=== PATIENT | female | born 1970 | race Caucasian/White ===

== ENCOUNTER → 2021-08-30 15:06 | Outpatient (CLI) | payer OTHER, SELFPAY ==
[2021-08-30 15:45] LABS: COVID19 -Nasal RAPID Negative (Negative)
== END ==
PROVIDERS: Visit Provider Physician Assistant
DX: Z20.822 Contact with and (suspected) exposure to COVID-19 (principal)
CPT/HCPCS: 87635

== ENCOUNTER → 2022-02-17 16:27 | Outpatient (CLI) | payer OTHER, SELFPAY ==
[2022-02-17 17:25] LABS: Hematocrit 40.2 % (36-46); Mean Corpuscular HGB Conc 34.9 % (30-36); Mean Corpuscular Hemoglobin 32.1 PG (26-34); Platelet Count 223 X10^3/uL (150-400); Red Blood Cell Count 4.37 X10^6/uL (4.0-5.2); Red Cell Distribution Width 12.8 % (11.6-14.8); White Blood Cell Count 7.1 X10^3/uL (4.5-11.0)
[2022-02-17 17:43] LABS: Alanine Aminotransferase 22 IU/L (<35); Albumin 4.7 g/dL (3.5-5.0); Albumin Globulin Ratio 1.7 (1.0-2.8); Alkaline Phosphatase 56 U/L (38-126); Aspartate Aminotransferase 30 IU/L (14-36); BUN Creatinine Ratio 22.8 (6-22); Bilirubin Total 0.6 mg/dL (0.2-1.3); Blood Urea Nitrogen 18 mg/dL (7-17); Calcium 9.3 mg/dL (8.4-10.2); Carbon Dioxide 29 mmol/L (22-32); Chloride 104 mmol/L (98-107); Cholesterol 174 mg/dL (140-199); Estimated Glomerular Filt Rate > 60 mL/min (>60); Globulin 2.8 g/dL (1.7-4.1); Glucose 84 mg/dL (70-100); HDL Cholesterol 67 mg/dL (40-60); HEMOLYSIS < 15 (0-50); LDL Cholesterol Calculated 75 mg/dL (<100); Potassium 3.6 mmol/L (3.4-5.1); Sodium 138 mmol/L (137-145); Total Protein 7.5 g/dL (6.3-8.2); Triglycerides 160 mg/dL (35-150)
== END ==
PROVIDERS: PCP Internal Medicine; Referring Provider Internal Medicine; Visit Provider Internal Medicine
DX: Z00.00 Encounter for general adult medical examination without abnormal findings (principal); R63.5 Abnormal weight gain; Z85.820 Personal history of malignant melanoma of skin
CPT/HCPCS: 36415; 80053; 80061; 84443; 85027

== ENCOUNTER → 2023-03-27 08:54 | Outpatient (CLI) | payer OTHER, SELFPAY ==
[2023-03-27 10:23] LABS: Hematocrit 40.1 % (36-46); Hemoglobin 13.9 g/dL (12.0-16.0); Mean Corpuscular HGB Conc 34.5 % (30-36); Mean Corpuscular Hemoglobin 31.7 PG (26-34); Mean Corpuscular Volume 91.9 fL (80-100); Platelet Count 225 X10^3/uL (150-400); Red Blood Cell Count 4.36 X10^6/uL (4.0-5.2); White Blood Cell Count 5.3 X10^3/uL (4.5-11.0)
[2023-03-27 10:46] LABS: Alanine Aminotransferase 27 IU/L (<35); Albumin Globulin Ratio 1.5 (1.0-2.8); Alkaline Phosphatase 58 U/L (38-126); Aspartate Aminotransferase 29 IU/L (14-36); BUN Creatinine Ratio 19.2 (6-22); Bilirubin Total 0.8 mg/dL (0.2-1.3); Blood Urea Nitrogen 14 mg/dL (7-17); Carbon Dioxide 30 mmol/L (22-32); Chloride 101 mmol/L (98-107); Cholesterol 153 mg/dL (140-199); Estimated Glomerular Filt Rate > 60 mL/min (>60); Globulin 2.6 g/dL (1.7-4.1); Glucose 82 mg/dL (70-100); HDL Cholesterol 58 mg/dL (40-60); HEMOLYSIS < 15 (0-50); LDL Cholesterol Calculated 76 mg/dL (<100); Potassium 3.8 mmol/L (3.4-5.1); Sodium 138 mmol/L (137-145); Total Protein 6.6 g/dL (6.3-8.2); Triglycerides 94 mg/dL (35-150)
[2023-03-27 11:15] LABS: TSH w/ Reflex to FT4 1.03 uIU/mL (0.47-4.68)
== END ==
PROVIDERS: PCP Registered Nurse Diabetes Educator; Referring Provider Registered Nurse Diabetes Educator; Visit Provider Registered Nurse Diabetes Educator
DX: Z00.00 Encounter for general adult medical examination without abnormal findings (principal)
CPT/HCPCS: 36415; 80053; 80061; 84443; 85027

== ENCOUNTER 2023-03-28 11:08 | Emergency (ER) | payer OTHER, SELFPAY ==
[2023-03-28] VITALS (11 sets, daily range): BP systolic 108–145; BP diastolic 66–72; PULSE 39–48; RESP 16–21; TEMP 36.9; O2SAT 98–99; BMI 24.0
--- NOTE | 2023-03-28 11:25 | DI.RAD.S_ITS ---
PROCEDURE: XR CHEST 1V INDICATIONS: chest pain TECHNIQUE: One view of the chest was acquired. COMPARISON: None. FINDINGS: Surgical changes and devices: None. Lungs and pleura: Lungs are clear. No pleural effusions or pneumothorax. Mediastinum: Mediastinal contours appear normal. Heart size is normal. Bones and chest wall: No suspicious bony lesions. Overlying soft tissues appear unremarkable. IMPRESSION: No acute cardiopulmonary abnormalities or focal airspace disease. Dictated by: Hector Vides M.D. on 03/28/2023 at 10:50 Approved by: Hector Vides M.D. on 03/28/2023 at 10:51
[2023-03-28 11:46] LABS: INR 1.1 (0.9-1.3); Prothrombin Time 12.1 SECONDS (10.1-12.7)
[2023-03-28 11:49] LABS: PTT Partial Thromboplastin Tim 28 SECONDS (26-36)
[2023-03-28 11:50] LABS: Add Manual Diff / Slide Review NO; Basophils Absolute Auto 200 /uL (0-100); Basophils Percent Auto 2.3 % (0-2); Eosinophils Absolute Auto 100 /uL (0-450); Eosinophils Percent Auto 1.7 % (2-4); Hematocrit 40.2 % (36-46); Hemoglobin 13.8 g/dL (12.0-16.0); Lymphocytes Absolute Auto 2000 /uL (1100-4500); Lymphocytes Percent Auto 27.3 % (25-40); Mean Corpuscular HGB Conc 34.5 % (30-36); Mean Corpuscular Hemoglobin 31.6 PG (26-34); Mean Corpuscular Volume 91.7 fL (80-100); Monocytes Absolute Auto 600 /uL (0-900); Monocytes Percent Auto 7.5 % (3-14); Neutrophils Absolute Auto 4500 /uL (1500-7000); Neutrophils Percent Auto 61.2 % (50-75); Platelet Count 225 X10^3/uL (150-400); Red Blood Cell Count 4.38 X10^6/uL (4.0-5.2); Red Cell Distribution Width 12.7 % (11.6-14.8); White Blood Cell Count 7.4 X10^3/uL (4.5-11.0)
[2023-03-28 11:52] LABS: Alanine Aminotransferase 27 IU/L (<35); Albumin 4.2 g/dL (3.5-5.0); Albumin Globulin Ratio 1.5 (1.0-2.8); Alkaline Phosphatase 58 U/L (38-126); Aspartate Aminotransferase 30 IU/L (14-36); BUN Creatinine Ratio 22.7 (6-22); Bilirubin Total 0.7 mg/dL (0.2-1.3); Blood Urea Nitrogen 17 mg/dL (7-17); Calcium 9.2 mg/dL (8.4-10.2); Carbon Dioxide 28 mmol/L (22-32); Chloride 103 mmol/L (98-107); Creatine Kinase 89 U/L (30-135); Estimated Glomerular Filt Rate > 60 mL/min (>60); Globulin 2.8 g/dL (1.7-4.1); Glucose 96 mg/dL (70-100); HEMOLYSIS < 15 (0-50); Lipase 69 U/L (23-300); Magnesium 2.1 mg/dL (1.6-2.3); Potassium 3.7 mmol/L (3.4-5.1); Sodium 137 mmol/L (137-145)
--- NOTE | 2023-03-28 11:57 | ED_ITS ---
HPI - Chest Pain General Chief Complaint: Chest Pain Stated Complaint: SOB/Chest Tightness Time Seen by Provider: 03/28/23 11:56 Source: patient Mode of arrival: Ambulatory Limitations: no limitations History of Present Illness HPI narrative: Patient healthy 53-year-old female who presents today left-sided chest pain. She reports that while doing ago which she does 4 times a week she is lying on her stomach doing the box breathing exercise when she got some sharp stabbing pain in her left chest. It is not reproducible with palpation. She felt like her whole chest was tight and that she could not breathe. She is feeling better now. Denies any nausea or vomiting. She reports that she went to PCP this week to establish care her vitals in the clinic she had a blood pressure 102/62, heart rate of 43. She is a little dizzy and lightheaded but reports that she drinks tons of water. They did just travel 3 weeks ago to [place]. No prior history of blood clots. No family history of [place] though mother did have a TIA and at age of 73. She is very active runs and does yoga regularly. Related Data Previous Rx's Medication Instructions Recorded fluticasone propionate 50 1 spray intranasal BID PRN nasal 06/28/22 mcg/actuation nasal congestion #16 grams spray,suspension Allergies Allergy/AdvReac Type Severity Reaction Status Date / Time No Known Drug Allergies Allergy Verified 03/24/23 09:44 Review of Systems Review of Systems ROS Unobtainable: All systems reviewed & are unremarkable except as noted in HPI and below Patient History Medical History Encounter for general adult medical examination without abnormal findings History of abnormal mammogram History of melanoma (~02/2017) Skin cancer Surgical History Anesthesia History of hysterectomy (~02/2018) Family History Father Melanoma Mother Hypertension Mental health problem Stroke Social History Smoking Status: Never smoker Smoking Status: Never smoker alcohol intake frequency: holidays/special occasions only Substance Use Type: does not use Exam Initial Vital Signs Initial Vital Signs: Vital Signs Temperature 98.4 F 03/28/23 11:19 Pulse Rate 48 L 03/28/23 11:19 Respiratory Rate 18 03/28/23 11:19 Blood Pressure 145/72 H 03/28/23 11:19 Pulse Oximetry 98 03/28/23 11:19 Oxygen Delivery Method Room Air 03/28/23 11:19 GENERAL: Alert pleasant well-appearing 53-year-old female and in no acute distress. HEENT: Head atraumatic,EOMI, pupils reactive, face symmetric, moist mucous membranes CARDIOVASCULAR: Regular rate and rhythm without murmurs, rubs or gallops. Pain left side of chest not reproducible with palpation RESPIRATORY: Breath sounds equal bilaterally, no wheezes rales or rhonchi. ABDOMEN: Soft, nontender. Normoactive bowel sounds all 4 quadrants. No guarding or rebound. EXTREMITIES: Normal range of motion, no clubbing or edema. Neurovascularly intact NEUROLOGICAL: Alert and oriented x4. SKIN: Warm, dry, no laceration, no petechiae, no rashes or lesions. Course Orders Ordered: ED Orders 03/28/23 11:19 EKG-12 Lead Stat 03/28/23 11:25 XR chest 1V Stat Complete Blood Count AUTO DIFF Stat Comprehensive Metabolic Panel Stat D Dimer Stat Lipase Stat Magnesium Stat PTT Partial Thromboplastin Harvey Stat Prothrombin Time INR Stat Troponin & CK Cardiac Panel Stat Discontinued Medications Aspirin (Aspirin 81 Mg Chew Tab) 324 mg PO NOW ONE Stop: 03/28/23 11:26 Last Admin: 03/28/23 11:59 Dose: 324 mg Documented By: RB Vital Signs Vital signs: Vital Signs - 8 hr 03/28/23 11:19 03/28/23 11:52 03/28/23 11:53 Temperature 98.4 F Pulse Rate 48 L 42 L Respiratory Rate 18 19 Blood Pressure 145/72 H 125/68 Pulse Oximetry 98 98 Oxygen Delivery Method Room Air 03/28/23 11:53 03/28/23 12:00 03/28/23 12:00 Temperature Pulse Rate 44 L 46 L Respiratory Rate 21 21 Blood Pressure 115/66 Pulse Oximetry 98 98 Oxygen Delivery Method 03/28/23 12:15 03/28/23 12:15 03/28/23 12:30 Temperature Pulse Rate 40 L Respiratory Rate 17 Blood Pressure 118/72 116/71 Pulse Oximetry 98 Oxygen Delivery Method 03/28/23 12:30 03/28/23 12:45 03/28/23 12:45 Temperature Pulse Rate 40 L 39 L Respiratory Rate 18 19 Blood Pressure 116/69 Pulse Oximetry 98 99 Oxygen Delivery Method 03/28/23 13:00 03/28/23 13:00 03/28/23 13:15 Temperature Pulse Rate 39 L Respiratory Rate 21 Blood Pressure 110/67 108/68 Pulse Oximetry 99 Oxygen Delivery Method 03/28/23 13:15 03/28/23 13:30 03/28/23 13:30 Temperature Pulse Rate 40 L 40 L Respiratory Rate 16 17 Blood Pressure 113/69 Pulse Oximetry 99 99 Oxygen Delivery Method 03/28/23 13:45 03/28/23 13:45 Temperature Pulse Rate 42 L Respiratory Rate 17 Blood Pressure 123/71 Pulse Oximetry 99 Oxygen Delivery Method MDM - Chest Pain Lab Data 03/28/23 11:25 03/28/23 11:25 Labs: Lab Results 03/28/23 03/28/23 03/28/23 Range/Units 11:25 11:25 11:25 WBC 7.4 (4.5-11.0) X10^3/uL RBC 4.38 (4.0-5.2) X10^6/uL Hgb 13.8 (12.0-16.0) g/dL Hct 40.2 (36-46) % MCV 91.7 (80-100) fL MCH 31.6 (26-34) PG MCHC 34.5 (30-36) % RDW 12.7 (11.6-14.8) % Plt Count 225 (150-400) X10^3/uL Neut % (Auto) 61.2 (50-75) % Lymph % (Auto) 27.3 (25-40) % [place] % (Auto) 7.5 (3-14) % Eos % (Auto) 1.7 L (2-4) % Baso % (Auto) 2.3 H (0-2) % Neut # (Auto) 4500 (4750-3704) /uL Lymph # (Auto) 2000 (1331-9764) /uL [place] # (Auto) 600 (0-900) /uL Eos # (Auto) 100 (0-450) /uL Baso # (Auto) 200 H (0-100) /uL PT 12.1 (10.1-12.7) SECONDS INR 1.1 (0.9-1.3) APTT 28 (26-36) SECONDS D-Dimer (<500) ng/ml Sodium 137 (137-145) mmol/L Potassium 3.7 (3.4-5.1) mmol/L Chloride 103 (98-107) mmol/L Carbon Dioxide 28 (22-32) mmol/L BUN 17 (7-17) mg/dL Creatinine 0.75 (0.52-1.04) mg/dL Estimated GFR > 60 (>60) mL/min BUN/Creatinine Ratio 22.7 H (6-22) Glucose 96 (70-100) mg/dL Calcium 9.2 (8.4-10.2) mg/dL Magnesium 2.1 (1.6-2.3) mg/dL Total Bilirubin 0.7 (0.2-1.3) mg/dL AST 30 (14-36) IU/L ALT 27 (<35) IU/L Alkaline Phosphatase 58 (38-126) U/L Total Creatine Kinase 89 (30-135) U/L Troponin I < 0.012 (0.01-0.034) ng/mL Total Protein 7.0 (6.3-8.2) g/dL Albumin 4.2 (3.5-5.0) g/dL Globulin 2.8 (1.7-4.1) g/dL Albumin/Globulin Ratio 1.5 (1.0-2.8) Lipase 69 (23-300) U/L // Range/Units 11:25 WBC (4.5-11.0) X10^3/uL RBC (4.0-5.2) X10^6/uL Hgb (12.0-16.0) g/dL Hct (36-46) % MCV (80-100) fL MCH (26-34) PG MCHC (30-36) % RDW (11.6-14.8) % Plt Count (150-400) X10^3/uL Neut % (Auto) (50-75) % Lymph % (Auto) (25-40) % [place] % (Auto) (3-14) % Eos % (Auto) (2-4) % Baso % (Auto) (0-2) % Neut # (Auto) (6607-4205) /uL Lymph # (Auto) (3083-1122) /uL [place] # (Auto) (0-900) /uL Eos # (Auto) (0-450) /uL Baso # (Auto) (0-100) /uL PT (10.1-12.7) SECONDS INR (0.9-1.3) APTT (26-36) SECONDS D-Dimer 329 (<500) ng/ml Sodium (137-145) mmol/L Potassium (3.4-5.1) mmol/L Chloride (98-107) mmol/L Carbon Dioxide (22-32) mmol/L BUN (7-17) mg/dL Creatinine (0.52-1.04) mg/dL Estimated GFR (>60) mL/min BUN/Creatinine Ratio (6-22) Glucose (70-100) mg/dL Calcium (8.4-10.2) mg/dL Magnesium (1.6-2.3) mg/dL Total Bilirubin (0.2-1.3) mg/dL AST (14-36) IU/L ALT (<35) IU/L Alkaline Phosphatase (38-126) U/L Total Creatine Kinase (30-135) U/L Troponin I (0.01-0.034) ng/mL Total Protein (6.3-8.2) g/dL Albumin (3.5-5.0) g/dL Globulin (1.7-4.1) g/dL Albumin/Globulin Ratio (1.0-2.8) Lipase (23-300) U/L Imaging Data Chest x-ray: Radiologist's Impression: PROCEDURE:? XR CHEST 1V ? INDICATIONS:? chest pain ? TECHNIQUE:? One view of the chest was acquired.? ? COMPARISON:? None. ? FINDINGS:? ? Surgical changes and devices:? None.? ? Lungs and pleura:? Lungs are clear.? No pleural effusions or pneumothorax.? ? Mediastinum:? Mediastinal contours appear normal.? Heart size is normal.? ? Bones and chest wall:? No suspicious bony lesions.? Overlying soft tissues appear unremarkable.? ? IMPRESSION:? No acute cardiopulmonary abnormalities or focal airspace disease. ? Dictated by: Hector Vides M.D. on 03/28/2023 at 10:50 ? ? Approved by: Hector Vides M.D. on 03/28/2023 at 10:51 ? ECG Data Interpretation: Normal sinus rhythm rate 50 PA interval 160 QRS 80 QTC 413 T-wave inversion noted in lead [address] elevations depressions. No AV boom blocks MDM Narrative Medical decision making narrative: Patient healthy 53-year-old female who presents today with atypical left-sided chest pain while doing yoga and deep breathing. Pain has gone. EKGs within normal limits does not show any evidence of ischemia blood work is reassuring with a normal troponin and a negative D-dimer. I suspect the patient's pain is likely musculoskeletal, like a costochondritis. It is nonradiating. While patient has been here she has been noted to be quite bradycardic in the 30s. Maritza jennings is not on any AV boom medication. She has no evidence of an AV boom block she is not symptomatic. She reports that her what BP sat her multiple times a day for heart rate below 30. Blood pressure is also noted to be slightly low in the office but seems to be normal here. She is adamant that she is no dizziness lightheadedness nausea or vomiting. Long discussion with her I do think that maritza jennings needs further cardiac evaluation such as Zio patch echo possible cardiology evaluation. Concern for severe bradycardia she is not yet passed out but might. Both patient and updated on my recommendations and understand. All questions have been addressed. Discharge Plan Departure Patient Disposition: Home Clinical Impression: Bradycardia, Acute costochondritis Instructions: Bradycardia, DI for Costochondritis Activity Restrictions/Additional Instructions: *You have been diagnosed with bradycardia, costochondritis *What to do: At this time I recommend a ZIO patch echocardiogram and further cardiac evaluation. Please wear your apple watch at all times to monitor [place] your heart rate is when you sleep. Under 40 is definitely concerning. Please monitor for any symptoms such as dizziness lightheadedness or passing out. Today I think her pain is likely musculoskeletal and strain from yoga I hope that it feels better soon. *Continue to take medications as directed *Follow up with your primary care provider in 2-3 days or call [phone] *Return to ER if you should have passing out dizziness lightheadedness worsening pain shortness of breath or any new, worsening or concerning symptoms Prescriptions: No Action fluticasone propionate 50 mcg/actuation spray,suspension 1 spray intranasal BID PRN (Reason: nasal congestion) Qty: 16 0RF Rx Instructions: administer into each nostril Referrals: Makros Ladd ARNP [Primary Care Provider] - Stand Alone Forms: Patient Portal/API
[2023-03-28] MEDS: ASPIRIN 81 MG CHEW TAB 324 MG PO (11:59)
[2023-03-28 12:04] LABS: Troponin I < 0.012 ng/mL (0.01-0.034)
[2023-03-28 12:18] LABS: D Dimer 329 ng/ml (<500)
== END 2023-03-28 13:56 | disposition home or self-care (01) ==
PROVIDERS: Emergency Provider Emergency Medicine; PCP Registered Nurse Diabetes Educator
DX: R00.1 Bradycardia, unspecified (principal); M94.0 Chondrocostal junction syndrome [Tietze]
CPT/HCPCS: 36415; 71045; 80053; 82550; 83690; 83735; 84484; 85025; 85379; 85610; 85730; 93005; 99284

== ENCOUNTER → 2023-04-16 13:49 | Outpatient (CLI) | payer OTHER, SELFPAY ==
--- NOTE | 2023-04-16 13:50 | DI.ECHO.S_ITS ---
[facility] +---------+ : : [address] : : : : [id number] : : : : Phone: [phone]---------+ Echocardiogram Report + + :Name: DELORIS HAZEL Study Date: 04/16/2023 Height: 64 in : :[facility] ReadingLocation: Weight: 130 lb : : Gender: Female BSA: 1.6 m2 : :: 1970 Age: 53 yrs BP: 121/80 mmHg: :Reason For Study: Bradycardia : :Ordering Physician: AARON, : :BONNIE Performed By: Ana Hu : :Referring: BONNIE WALKER : + + Interpretation Summary The left ventricle is normal in size. Left ventricular systolic function appears normal without focal wall motion abnormalities. The ejection fraction is estimated to be 55-60%. Diastolic parameters suggest probable normal left ventricular diastolic function and normal filling pressures. The right ventricle is normal size. The right ventricular systolic function is normal. The right ventricular systolic pressure is estimated to be at least 27 mmHg based on an estimated right atrial pressure of 8 mm Hg. The left atrial size is normal. There is no significant valvular heart disease. The aortic root is normal size. Procedure: A two-dimensional transthoracic echocardiogram with color flow and Doppler was performed. The study quality was technically good. There is no prior echocardiogram noted for this patient. The patient was in a bradycardic rhythm during the exam. Left Ventricle: The left ventricle is normal in size. Left ventricular systolic function appears normal without focal wall motion abnormalities. The ejection fraction is estimated to be 55-60%. Diastolic parameters suggest probable normal left ventricular diastolic function and normal filling pressures. Right Ventricle: The right ventricle is normal size. The right ventricular systolic function is normal. Atria: The left atrial size is normal. Right atrial size is normal. There is no Doppler evidence for an interatrial shunt. Mitral Valve: The mitral valve is normal. There is no mitral valve stenosis. There is no mitral regurgitation noted. Aortic Valve: The aortic valve is trileaflet. The aortic valve opens well. There is no aortic valve stenosis. No aortic regurgitation is present. Tricuspid Valve: The tricuspid valve is normal. There is no tricuspid stenosis. There is mild tricuspid regurgitation. The right ventricular systolic pressure is estimated to be at least 27 mmHg based on an estimated right atrial pressure of 8 mm Hg. Pulmonic Valve: The pulmonic valve is not well visualized. There is no pulmonic valvular stenosis. There is mild pulmonic regurgitation. There is no significant valvular heart disease. Great Vessels: The aortic root is normal size. The ascending aorta is normal in size. The pulmonary artery is normal size. The IVC is dilated (diameter is greater than 2.1 cm) yet it collapses greater than 50% with a sniff. This suggests a right atrial pressure of 8 mm Hg. Pericardium/ Pleura There is no pericardial effusion. There is no pleural effusion. MMode/2D Measurements & Calculations LVIDd: 4.8 cm LVOT diam: 1.8 cm LVIDs: 3.4 cm Ao root diam: 3.0 cm FS: 29.2 % asc Aorta Diam: 2.4 cm IVSd: 0.70 cm LVPWd: 0.70 cm LV chopra. diameter/BSA (cm/m^2): 2.9 LV sys. diameter/BSA (cm/m^2): 2.1 LA A2 area: 11.5 cm2 RA long axis: 4.4 cm LA A4 area: 11.8 cm2 RA area: 11.0 cm2 LA length (vol): 4.9 cm RA vol: 23.5 ml LA vol: 23.7 ml RA : 14.4 ml/m2 LA vol index: 14.5 ml/m2 RVD1 (basal): 3.3 cm LVLs ap4: 6.6 cm LVLd ap2: 7.7 cm TAPSE_phl: 2.3 cm LVLs ap2: 5.8 cm Doppler Measurements & Calculations Ao V2 max: 133.0 cm/sec LVOT Max Gary: 105.0 cm/sec Ao V2 mean: 82.1 cm/sec LV V1 max P.4 mmHg Ao max P.0 mmHg LV V1 VTI: 23.6 cm Ao mean P.0 mmHg LISA(I,D): 1.8 cm2 Ao V2 VTI: 32.9 cm LISA(V,D): 2.0 cm2 sev ratio: 0.72 LISA indexed to BSA (cm^2/m^2): 1.1 MV E max gary: 84.8 cm/sec TR max gary: 217.0 cm/sec MV A max gary: 71.1 cm/sec TR max P.0 mmHg MV E/A: 1.2 PA V2 max: 117.0 cm/sec Med Peak E' Gary: 10.6 cm/sec PA V2 mean: 83.5 cm/sec E/E' med: 8.0 PA mean P.0 mmHg Lat Peak E' Gary: 14.4 cm/sec PA pr(Accel): 11.0 mmHg E/E' lat: 5.9 E/e' average: 6.9 MV dec time: 0.18 sec SV(LVOT): 60.1 ml AV VR_phl: 0.79 LISA(VTI)/BSA_phl: 1.1 Reading Physician:03:16 PM
== END ==
PROVIDERS: PCP Registered Nurse Diabetes Educator; Referring Provider Family Medicine; Visit Provider Family Medicine
DX: I37.1 Nonrheumatic pulmonary valve insufficiency (principal); I07.1 Rheumatic tricuspid insufficiency; R00.1 Bradycardia, unspecified
CPT/HCPCS: 93306

== ENCOUNTER → 2023-06-26 10:41 | Outpatient (CLI) | payer OTHER, SELFPAY ==
--- NOTE | 2023-06-26 | DI.MG.S_ITS ---
BILATERAL DIGITAL SCREENING MAMMOGRAM 3D/2D WITH CAD WITH AUGMENTATION: 06/26/2023 CLINICAL: Routine screening. Comparison is made to exams dated: 07/28/2022 mammogram, 07/24/2021 mammogram, 07/05/2020 mammogram, and 06/14/2019 mammogram - [facility]. Both breasts are heterogeneously dense, which may obscure small masses (category c / 51-75% glandular tissue). Current study was also evaluated with a Computer Aided Detection (CAD) system. Bilateral breast implants are stable and intact. There are benign post operative findings and biopsy clip in the right breast. No significant masses, calcifications, or other findings are seen in either breast. There has been no significant interval change. IMPRESSION: BENIGN There is no mammographic evidence of malignancy. A 1 year screening mammogram is recommended. Based on the Tyrer Cuzick model (a risk assessment model) the patient's lifetime risk is 11.2% and her 10 year risk is 2.9%. According to the ACR, ACS, and NCCN guidelines, an annual breast MRI exam along with mammogram is recommended if the patient's lifetime risk is 20% or greater. This exam was interpreted at Station ID: [id number]. NOTE: For mammograms, a report in lay terms will be sent to the patient. Approximately 15% of breast malignancies will not be visualized mammographically. In the management of a palpable breast mass, a negative mammogram must not discourage biopsy of a clinically suspicious lesion. Electronically Signed By: Sky alvarez/chalino:06/26/2023 14:45:00 letter sent: Normal Exam ACR BI-RADS Category 2: Benign Finding(s) 3342F
== END ==
PROVIDERS: PCP Registered Nurse Diabetes Educator; Referring Provider Registered Nurse Diabetes Educator; Visit Provider Registered Nurse Diabetes Educator
DX: Z12.31 Encounter for screening mammogram for malignant neoplasm of breast (principal)
CPT/HCPCS: 77063; 77067

== ENCOUNTER → 2024-04-18 12:39 | Outpatient (CLI) | payer OTHER, SELFPAY ==
[2024-04-18 13:49] LABS: Hematocrit 39.8 % (36-46); Hemoglobin 13.6 g/dL (12.0-16.0); Mean Corpuscular Hemoglobin 32.1 PG (26-34); Mean Corpuscular Volume 94.4 fL (80-100); Platelet Count 209 X10^3/uL (150-400); Red Blood Cell Count 4.22 X10^6/uL (4.0-5.2); Red Cell Distribution Width 12.8 % (11.6-14.8); White Blood Cell Count 6.6 X10^3/uL (4.5-11.0)
[2024-04-18 14:16] LABS: Alanine Aminotransferase 26 IU/L (<35); Albumin 4.4 g/dL (3.5-5.0); Albumin Globulin Ratio 1.8 (1.0-2.8); Alkaline Phosphatase 61 U/L (38-126); Aspartate Aminotransferase 32 IU/L (14-36); BUN Creatinine Ratio 21.4 (6-22); Bilirubin Total 0.8 mg/dL (0.2-1.3); Blood Urea Nitrogen 15 mg/dL (7-17); Calcium 9.5 mg/dL (8.4-10.2); Carbon Dioxide 27 mmol/L (22-32); Chloride 104 mmol/L (98-107); Cholesterol 157 mg/dL (140-199); Estimated Glomerular Filt Rate > 60 mL/min (>60); Globulin 2.4 g/dL (1.7-4.1); Glucose 83 mg/dL (70-100); HDL Cholesterol 61 mg/dL (40-60); HEMOLYSIS < 15 (0-50); LDL Cholesterol Calculated 65 mg/dL (<100); Sodium 138 mmol/L (137-145); Total Protein 6.8 g/dL (6.3-8.2); Triglycerides 155 mg/dL (35-150)
== END ==
PROVIDERS: PCP Registered Nurse Diabetes Educator; Referring Provider Registered Nurse Diabetes Educator; Visit Provider Registered Nurse Diabetes Educator
DX: Z13.0 Encounter for screening for diseases of the blood and blood-forming organs and certain disorders involving the immune mechanism (principal); Z13.29 Encounter for screening for other suspected endocrine disorder; Z13.220 Encounter for screening for lipoid disorders; Z13.228 Encounter for screening for other metabolic disorders
CPT/HCPCS: 36415; 80053; 80061; 84443; 85027

== ENCOUNTER → 2024-04-29 09:00 | Outpatient (CLI) | payer OTHER, SELFPAY ==
--- NOTE | 2024-04-29 09:01 | DI.MG.S_ITS ---
BILATERAL DIGITAL DIAGNOSTIC MAMMOGRAM 3D/2D WITH AUGMENTATION: 04/29/2024 CLINICAL: Right breast mass. Comparison is made to exams dated: 06/26/2023 mammogram - [facility], 07/28/2022 mammogram, and 07/24/2021 mammogram - [facility]. Both breasts are heterogeneously dense, which may obscure small masses (category c / 51-75% glandular tissue). No significant masses, calcifications, or other findings are seen in either breast. The bilateral implants have a stable appearance. Stable grouped calcifications in the upper aspect of the right breast. IMPRESSION: INCOMPLETE: NEEDS ADDITIONAL IMAGING EVALUATION There is no abnormality seen in the right breast to correspond with the area of clinical concern, palpable abnormality, and pain indicated by triangular marker in the posterior depth in the upper outer quadrant near the axilla, however, ultrasound is recommended for further evaluation and is scheduled to immediately follow this examination. Based on the Tyrer Cuzick model (a risk assessment model) the patient's lifetime risk is 11.1% and her 10 year risk is 3.0%. According to the ACR, ACS, and NCCN guidelines, an annual breast MRI exam along with mammogram is recommended if the patient's lifetime risk is 20% or greater. This exam was interpreted at Station ID: [id number]. NOTE: For mammograms, a report in lay terms will be sent to the patient. Approximately 15% of breast malignancies will not be visualized mammographically. In the management of a palpable breast mass, a negative mammogram must not discourage biopsy of a clinically suspicious lesion. Electronically Signed By: Hector Vides M.D. aty/:04/29/2024 09:43:36 ACR BI-RADS Category 0: Incomplete 3340F
--- NOTE | 2024-04-29 09:01 | DI.US.S_ITS ---
PROCEDURE: US BREAST RT LIMITED COMPARISON: [facility], , US BREAST RT LIMITED, 08/20/2022, 11:41. INDICATIONS: R breast mass 11 o'clock FINDINGS: IMPRESSION: Dictated by: Hector Vides M.D. on 04/29/2024 at 10:34 Approved by: Hector Vides M.D. on 04/29/2024 at 10:40
--- NOTE | 2024-04-29 09:49 | DI.US.S_ITS ---
Patient Name: DELORIS HAZEL date: 1970 Sex: F Attending Physician: Wilberto Indications: Date: 04/29/2024 10:39 At the request of: JOCELYN BOTELLO Procedure: US breast RT limited LIMITED ULTRASOUND OF RIGHT BREAST: 04/29/2024 CLINICAL: Palpable right breast lump. Comparison is made to exams dated: 04/29/2024 mammogram, 06/26/2023 mammogram - [facility], 08/20/2022 ultrasound, 08/20/2022 mammogram, 07/28/2022 mammogram, and 07/24/2021 mammogram - [facility]. Color flow and real-time ultrasound of the right breast 10 o'clock region were performed. Melchor scale images of the real-time examination were reviewed. There is an area of fibroglandular tissue in the posterior right breast and axillary tail. This area of fibroglandular tissue is heterogeneously echogenic but of mixed echogenicity. This appears similar to ultrasound evaluation in 2021. This correlates as palpated and with area of clinical concern. There also are multiple benign appearing lymph nodes in the right axillary tail/axilla. These correlate as palpated, to the reported pain, and with area of clinical concern. IMPRESSION: BENIGN There is no sonographic evidence of malignancy. The area of fibroglandular tissue in the posterior depth of the right breast and right axillary tail is consistent with dense fibroglandular tissue with likely fibrocystic change and is benign. The multiple normal lymph nodes in the right axillary tail are also benign. Recommend clinical follow up for persistent or worsening symptoms, or development of any clinically suspicious findings. A 1 year screening mammogram is recommended. Continued Report - Page 2 of 2 Patient Name: DELORIS HAZEL date: 1970 Sex: F Attending Physician: Wilberto Indications: Date: 04/29/2024 10:39 At the request of: JOCELYN BOTELLO Procedure: US breast RT limited Findings and recommendations were conveyed to the patient during today's evaluation. This exam was interpreted at Station ID: [id number]. Electronically Signed By: Hector Vides M.D. aty/:04/29/2024 10:39:40 letter sent: Clinical Evaluation Ultrasound BI-RADS: 2 Benign
== END ==
PROVIDERS: PCP Registered Nurse Diabetes Educator; Referring Provider Registered Nurse Diabetes Educator; Visit Provider Registered Nurse Diabetes Educator
DX: R92.1 Mammographic calcification found on diagnostic imaging of breast (principal); R92.2 Inconclusive mammogram; N63.10 Unspecified lump in the right breast, unspecified quadrant; R92.333 Mammographic heterogeneous density, bilateral breasts; Z98.82 Breast implant status
CPT/HCPCS: 76642; 77066; G0279

== ENCOUNTER → 2025-06-07 08:05 | Outpatient (CLI) | payer OTHER, SELFPAY ==
[2025-06-07 09:00] LABS: Hematocrit 41.7 % (36-46); Hemoglobin 14.2 g/dL (12.0-16.0); Mean Corpuscular HGB Conc 34.1 % (30-36); Mean Corpuscular Hemoglobin 31.5 PG (26-34); Mean Corpuscular Volume 92.3 fL (80-100); Platelet Count 228 X10^3/uL (150-400)
[2025-06-07 09:23] LABS: Alanine Aminotransferase 23 IU/L (<35); Albumin 4.5 g/dL (3.5-5.0); Albumin Globulin Ratio 1.7 (1.0-2.8); Alkaline Phosphatase 54 U/L (38-126); Blood Urea Nitrogen 19 mg/dL (7-17); Calcium 9.7 mg/dL (8.4-10.2); Carbon Dioxide 25 mmol/L (22-32); Chloride 103 mmol/L (98-107); Cholesterol 161 mg/dL (140-199); Estimated Glomerular Filt Rate > 60 mL/min (>60); Globulin 2.7 g/dL (1.7-4.1); Glucose 58 mg/dL (70-99); HDL Cholesterol 63 mg/dL (40-60); HEMOLYSIS < 15 (0-50); Potassium 4.4 mmol/L (3.4-5.1); Sodium 137 mmol/L (137-145); Total Protein 7.2 g/dL (6.3-8.2); Triglycerides 99 mg/dL (35-150)
[2025-06-07 09:54] LABS: TSH w/ Reflex to FT4 2.06 uIU/mL (0.47-4.68)
== END ==
PROVIDERS: PCP Registered Nurse Diabetes Educator; Referring Provider Registered Nurse Diabetes Educator; Visit Provider Registered Nurse Diabetes Educator
DX: Z00.00 Encounter for general adult medical examination without abnormal findings (principal)
CPT/HCPCS: 36415; 80053; 80061; 84443; 85027